=== PATIENT | male | born 1960 | race Two or more races ===

== ENCOUNTER 2017-11-18 08:29 | Outpatient (CLI) | payer OTHER | END 2017-11-18 08:41 | disposition home or self-care (01) | LOC: LAB 08:29 | DX: C73 Malignant neoplasm of thyroid gland (principal); E89.0 Postprocedural hypothyroidism; E10.9 Type 1 diabetes mellitus without complications; I10 Essential (primary) hypertension ==

== ENCOUNTER 2022-11-11 12:23 | Outpatient (CLI) | payer OTHER | END 2022-11-11 12:26 | disposition home or self-care (01) | LOC: SONOGRAMA 12:23 | PROVIDERS: ATTEND Pathology Anatomic Pathology & Clinical Pathology | DX: C73 Malignant neoplasm of thyroid gland (principal) ==

== ENCOUNTER 2024-06-25 14:11 | Emergency (ER) | payer OTHER ==
[~2024-06-25] VITALS: Ht 170.2 cm; Wt 77.1 kg
[2024-06-25] MEDS ORDERED: NORVASC10 MG PO (14:54)
[2024-06-25] MEDS ORDERED: COZAAR100 MG PO (14:54)
[2024-06-25] MEDS ORDERED: ATORVASTATIN CA10 MG PO (14:54)
[2024-06-25] MEDS ORDERED: SYNTHROID175 MCG PO (14:54)
[2024-06-25] MEDS ORDERED: HUMALOG100 UNIT/2 (14:55)
[2024-06-25] MEDS ORDERED: ONDANSETRON HCL 2 MG/ML VIAL IV STA (16:52)
[2024-06-25] MEDS ORDERED: FAMOTIDINE/PF 20 MG/2 ML VIAL IV PUSH STA (16:52)
[2024-06-25 17:33] LABS: URINE APPEARANCE Clear; URINE BILIRRUBIN Negative (NEGATIVE); URINE BLOOD Negative; URINE COLOR Yellow; URINE GLUCOSE Negative (NEGATIVE); URINE KETONE 15 (NEGATIVE); URINE LEUKOCYTE Negative; URINE NITRATE Negative; URINE PROTEIN Trace (NEGATIVE)
[2024-06-25 17:37] LABS: URINE BACTERIA 12.5 uL (0.0-1933); URINE EPITHELIAL CELLS 2.4 uL (0.0-38.8); URINE RBC 29.4 uL (0.0-20.8)
[2024-06-25 17:38] LABS: HEMATOCRIT 40.6 % (39.0-48.0); HEMOGLOBIN 14.1 g/dL (13-16.00); MEAN CELL VOLUME 86.9 fL (80.0-100.00); MEAN CORPUSCULAR HEMOGLOBIN 30.2 pg (27.00-32.0); MEAN CORPUSCULAR HGB CONC 34.8 g/dl (32.0-36.0); PLATELET COUNT 304 K/uL (150-450); RED BLOOD COUNT 4.67 M/uL (4.00-6.00); RED CELL DISTRIBUTION WIDTH 13.6 % (11.5-14.5)
[2024-06-25 17:44] LABS: URINE CAST 0.15 uL (0.0-1.40); URINE WBC 1.6 uL (0.0-23.2)
[2024-06-25 18:04] LABS: ALBUMIN 3.9 gm/dL (3.4-5.0); BILIRUBIN TOTAL 0.35 mg/dL (0.3-1.2); CREATININE SERUM 1.1 mg/dL (0.70-1.30); GFR 68.05; GLOBULINA 3.7 G/DL (2.4-3.5); POTASSIUM 4.62 mEq/L (3.5-5.1); TOTAL PROTEIN 7.6 gm/dL (6.4-8.2)
== END 2024-06-25 18:19 | disposition home or self-care (01) ==
LOC: ER 14:12
PROVIDERS: General Practice
DX: R50.9 Fever, unspecified (principal); R53.81 Other malaise; Z20.822 Contact with and (suspected) exposure to COVID-19; I10 Essential (primary) hypertension; E11.9 Type 2 diabetes mellitus without complications; Z79.4 Long term (current) use of insulin

== ENCOUNTER → 2024-09-07 | Outpatient (CLI) | payer OTHER ==
[~2024-09-07] MED LIST: ATORVASTATIN CA10 MG PO; COZAAR100 MG PO; HUMALOG100 UNIT/2; NORVASC10 MG PO; SYNTHROID175 MCG PO
== END | disposition home or self-care (01) ==
LOC: SONOGRAMA 10:32
DX: C73 Malignant neoplasm of thyroid gland (principal); E89.0 Postprocedural hypothyroidism